=== PATIENT | male | born 1995 ===

== ENCOUNTER 2020-04-25 12:06 | Emergency (ER) | payer BC ==
[~2020-04-25] VITALS: Ht 167.6 cm; Wt 54.4 kg
[~2020-04-25 12:06] MED LIST: LEVSIN/SL0.125 MG PO; OMEPRAZOLE20 MG PO; PROTONIX40 MG PO; ZANTAC150 MG PO
== END 2020-04-25 13:54 | disposition home or self-care (01) ==
LOC: ER 12:06
DX: R07.89 Other chest pain (principal)

== ENCOUNTER → 2025-10-12 | Emergency (ER) | payer OTHER | END | disposition left against medical advice (07) | LOC: ER 00:04 | DX: Z53.21 Procedure and treatment not carried out due to patient leaving prior to being seen by health care provider (principal) ==